=== PATIENT | female | born 1980 | race Caucasian/White ===

== ENCOUNTER 2016-09-16 10:44 | Emergency (ER) | payer OTHER ==
[2016-09-16 12:06] LABS: ABSOLUTE NEUTROPHIL COUNT 6.8 K/mm3 (1.8-7.7); BASO # 0.1 K/mm3 (0.0-0.2); BASO % 0.5 % (0.2-1.0); EOS # 0.3 (0.0-0.5); EOS % 2.6 % (0.9-2.9); HEMATOCRIT 43.1 % (37.0-47.0); HEMOGLOBIN 14.1 gm/l (12.0-16.0); IMM NEUT # 0.1 K/mm3 (0-0.2); IMM NEUT% 0.4 % (0-1); LYMPH # 3.5 (1.0-4.8); LYMPH % 30.6 % (15-45); MEAN CELL VOLUME 95.6 fl (81.0-99.0); MEAN CORPUSCULAR HEMOGLOBIN 31.3 pg (27.0-31.0); MEAN CORPUSCULAR HGB CONC 32.7 g/dl (33.0-37.0); MONO # 0.7 (0.0-0.8); MONO % 5.9 % (4-12); PLATELET COUNT 195 K/mm3 (130-400)
[2016-09-16 12:17] LABS: URINE BILIRUBIN NEGATIVE (NEGATIVE); URINE BLOOD NEGATIVE (NEGATIVE); URINE GLUCOSE (UA) NEGATIVE (NEGATIVE); URINE LEUKOCYTE ESTERASE TRACE (NEGATIVE); URINE NITRITE NEGATIVE (NEGATIVE); URINE PROTEIN NEGATIVE (NEGATIVE); URINE UROBILINOGEN NORMAL (0-1 mg/dl)
[2016-09-16 12:18] LABS: URINE APPEARANCE CLEAR; URINE COLOR YELLOW
[2016-09-16 12:21] LABS: ALB/GLOB RATIO 1.6 (>1.0); ALBUMIN 3.5 gm/dL (3.5-5.7); CALCIUM 8.7 mg/dL (8.6-10.3)
[2016-09-16 12:27] LABS: AMPHETAMINES/METHAMPHETAMINES NEGATIVE (NEGATIVE); COCAINE NEGATIVE (NEGATIVE); MARIJUANA POSITIVE (NEGATIVE); METHADONE NEGATIVE (NEGATIVE); OPIATES NEGATIVE (NEGATIVE); TRICYCLIC ANTIDEPRESSANTS NEGATIVE (NEGATIVE)
[2016-09-16 12:33] LABS: URINE BACTERIA TRACE; URINE RBC RARE /hpf
[2016-09-16] MEDS ORDERED: SODIUM CHLORIDE 0.9% 1,000 ML ONE (12:46)
[2016-09-16] MEDS ORDERED: KETOROLAC TROMETHAMINE 30 MG/ML 1 ML VIAL ONE (12:47)
[2016-09-16] MEDS ORDERED: DIPHENHYDRAMINE HCL 50 MG/1 ML VIAL ONE (12:47)
--- NOTE | 2016-09-16 13:22 | RAD ---
09/16/2016 1:18 PM CHEST - 2 VIEWS History: Chest pain for 3 days. Comparison: 03/04/2016 Findings: Two views of the chest are obtained. The lungs are clear with out effusion or pneumothorax. The cardiomediastinal silhouette is unremarkable.. The osseous structures are intact.. Hyperinflation is noted with flattening of the hemidiaphragms and increase in the retrosternal airspace. IMPRESSION: No acute intrathoracic process.
== END 2016-09-16 14:08 | disposition home or self-care (01) ==
LOC: ED 10:44
DX: R07.81 Pleurodynia (principal); J45.909 Unspecified asthma, uncomplicated; R11.0 Nausea
CPT/HCPCS: 82150; 84703; 85025; 80305; 80053; 80307; 84484; 81001; 71020; 96375; 99284 ×2; 96374; 96361; 93005; J1200; J1885; J7030